=== PATIENT | female | born 1955 | race Caucasian/White ===

== ENCOUNTER 2016-10-21 21:56 | Emergency (ER) | payer BC ==
[2016-10-21 22:17] LABS: Urine Bilirubin Negative (NEGATIVE); Urine Blood 250 /ul (NEGATIVE); Urine Ketone Negative (NEGATIVE); Urine Nitrite Negative (NEGATIVE); Urine Protein 100 mg/dL (NEGATIVE); Urine Specific Gravity <=1.005 SP.GR. (1.005-1.010); Urine Urobilinogen Normal (NORMAL); Urine pH 6.5 pH (5.0-7.0)
--- NOTE | 2016-10-21 22:27 | ERNOTE ---
ER Female HPI Stated Complaint: URINARY PROBLEM Presenting Symptoms: dysuria Time Seen by Provider: 10/21/16 22:24 Source: patient Exam Limitations: no limitations Immunizations: IMMUNIZATION HX Immunizations Up to Date No Allergies/Adverse Reactions: Allergies aspirin Allergy (Verified 10/21/16 22:08) Home Medications: HOME MEDICATIONS Nitrofurantoin Monohyd/M-Cryst [Nitrofurantoin Jones-Mcr 100 mg] 100 mg PO BID # 10 capsule 10/21/16 [Last Taken Unknown] - History of Present Illness Narrative: Frequency, appears bloody, mackay on urination x 2 days Timing: Present: getting worse Quality: Present: moderate Prior Abdominal Problems: Present: none Prior Treatment: Present: other - tried drinking extra water and cranberry juice with no benefit Review of Systems - Review of Systems Constitutional: Absent: recent illness, fever, chills EYE: Present: no symptoms reported ENT: Present: no symptoms reported Respiratory: Absent: shortness of breath Cardiology: Absent: chest pain Gastrointestinal/Abdominal: Absent: nausea, vomiting Genitourinary: Present: See HPI Musculoskeletal: Absent: back pain Skin: Absent: rash, lesions Neurological: Present: no symptoms reported Endocrine: Absent: increased thirst Hematologic/Lymphatic: Present: no symptoms reported Psych: Present: no symptoms reported - Patient's Past Medical History Patient History - Medical: UTI'S Patient History - Cardiac/Respiratory: No pertinent hx Patient History - Cancer: No Hx of Cancer Patient History - Surgical Procedures: Appendectomy - Social History Living Situations: home Psych History: No pertinent hx Smoking Status: Never smoker Alcohol Use: none Drug Use: none - Immunizations Immunizations Up to Date: No Physical Exam - Physical Exam General Appearance: Present: wd/wn, alert, no apparent distress Head Exam: Present: normal inspection, no evidence of injury Eye Exam: Normal inspection: bilateral Neck: Present: normal inspection, nontender, supple Gastrointestinal/Abdominal: Present: tenderness - suprapubic Back Exam: Present: normal range of motion, no CVA tenderness Extremity Exam: Present: normal inspection, normal range of motion, no edema Neurological Exam: Present: alert, oriented, normal mood/affect Skin Exam: Present: normal color, warm/dry Lymphatic Exam: Present: no adenopathy ED Progress - Results and Orders Patient's Lab Results:: I have reviewed the patient's lab results. Results and Orders: Laboratory Tests 10/21/16 22:14 Urine Color Red Urine Appearance Slightly cloudy Urine pH 6.5 Ur Specific [place] <=1.005 Urine Protein 100 H Urine Glucose (UA) Negative Urine Ketones Negative Urine Blood 250 H Urine Nitrate Negative Urine Bilirubin Negative Prot Sulfosalicylic Acd 3+ H Urine Urobilinogen Normal Ur Leukocyte Esterase 500 H Urine RBC 25-50 H Urine WBC >50 H Ur Epithelial Cells 5-10 H Urine Bacteria 1+ H Urine Culture Comments Culture to follow - Vital Signs Patient's Vital Signs:: I have reviewed the patient's vital signs. Vital Signs: Vital Signs 10/21/16 22:04 Temperature 37.4 C Pulse Rate 78 Respiratory 18 Rate Blood Pressure 147/64 O2 Sat by Pulse 98 Oximetry - Progress/Reassessment Chief Complaint: Genitourinary Problem Departure Clinical Impression: Urinary tract infection Qualifiers: Urinary tract infection type: acute cystitis Hematuria presence: with hematuria Qualified Code(s): N30.01 - Acute cystitis with hematuria - Departure Disposition: Home self-care Condition: Good Instructions: Urinary Tract Infection, Adult, [id number] Referrals: Franklin Fuentes MD [Primary Care Provider] - Prescriptions: Nitrofurantoin Monohyd/M-Cryst [Nitrofurantoin Jones-Mcr 100 mg] 100 mg PO BID # 10 capsule
[2016-10-21 22:46] LABS: Urine Bacteria 1+; Urine RBC 25-50 /hpf (0-5); Urine WBC >50 /hpf (0-5)
[2016-10-21 22:49] LABS: Urine Appearance Slightly Cloudy; Urine Color Red
[2016-10-21] MEDS ORDERED: NITROFURANTOIN/NITROFURAN MAC 100 MG CAPSULE PO SCH (23:15)
[2016-10-21] MEDS ORDERED: NITROFURANTOIN/NITROFURAN MAC 100 MG CAPSULE ONE (23:16)
[2016-10-21 23:25] VITALS: BP 140/68
== END 2016-10-21 23:24 | disposition home or self-care (01) ==
LOC: ER 21:56
DX: N30.01 Acute cystitis with hematuria (principal)